=== PATIENT | male | born 1960 | race Hispanic/Latino ===

== ENCOUNTER 2019-09-03 10:10 | Day surgery (SDC) | payer BC ==
[2019-08-31 13:04] VITALS: BP 156/67
[2019-08-31 13:10] LABS: BASOPHILS % (AUTO) 0.6 % (0.0-5.0); EOSINOPHILS % (AUTO) 0.5 % (0.0-8.0); HEMATOCRIT 41.9 % (42-54); LYMPHOCYTES % (AUTO) 26.9 % (21.0-51.0); MEAN CORPUSCULAR HEMOGLOBIN 30.8 pg (27.0-33.0); MEAN CORPUSCULAR HGB CONC 34.4 g/dL (32.0-36.0); MEAN CORPUSCULAR VOLUME 89.5 fL (79-99); MONOCYTES % (AUTO) 7.5 % (3.0-13.0); NEUTROPHILS % (AUTO) 64.5 % (40.0-77.0); PLATELET COUNT (AUTO) 157 K/uL (130-400); RED BLOOD CELL COUNT(AUTO) 4.69 MIL/uL (4.50-6.20); RED CELL DISTRIBUTION WIDTH 13.6 % (11.0-15.5); WHITE BLOOD COUNT (AUTO) 8.8 K/uL (4.8-10.8)
[2019-08-31 13:11] LABS: APPEARANCE,URINE Clear (CLEAR); BILIRUBIN,URINE Negative (NEGATIVE); COLOR,URINE Yellow (YELLOW); GLUCOSE, URINE (UA) Negative (NEGATIVE); KETONES,URINE Trace mg/dL (NEGATIVE); LEUKOCYTE ESTERASE ,URINE Negative (NEGATIVE); NITRATE,URINE Negative (NEGATIVE); OCCULT BLOOD,URINE Negative (NEGATIVE); PROTEIN,URINE Negative (NEGATIVE)
[2019-08-31 13:22] LABS: CREATININE 1.1 mg/dL (0.5-1.5); POTASSIUM 4.3 mmol/L (3.5-5.1)
[~2019-09-03] VITALS: Ht 166.4 cm; Wt 102.1 kg
[2019-09-03] VITALS (13 sets, daily range): BP systolic 116–144; BP diastolic 67–85
[2019-09-03] MEDS: CEFTRIAXONE SODIUM 1 GM IVP SCH ×2 (06:00→12:22)
[~2019-09-03 10:10] MED LIST: GENTAMICIN 80 MG/NS 100 ML PB 100 ML IV SCH; OLME1TAB46 PO; ROSU10TA28 PO
[2019-09-03] MEDS ORDERED: LACTATED RINGERS 1000ML 1,000 ML IV ONE (10:48)
[2019-09-03] MEDS ORDERED: SCOPOLAMINE HYDROBROMIDE 1 EACH ADH..PATCH TD ONE (10:54)
[2019-09-03] MEDS ORDERED: FENTANYL CITRATE PF 50 MCG/1 ML 2ML VIAL ONE ×2 (12:08→12:31)
[2019-09-03] MEDS ORDERED: MIDAZOLAM HCL 1 MG/ML 2ML VIAL ONE (12:08)
[2019-09-03] MEDS ORDERED: LIDOCAINE PF 2% 5ML ABBOJECT ONE (12:08)
[2019-09-03] MEDS ORDERED: PROPOFOL 10 MG/ML 20ML VIAL IV ONE (12:08)
[2019-09-03] MEDS ORDERED: EPHEDRINE SULFATE 50 MG/ML AMPULE ONE (12:19)
[2019-09-03] MEDS ORDERED: DEXAMETHASONE SOD PHOSPHATE 10MG/ML 1ML VIAL ONE (12:39)
[2019-09-03] MEDS ORDERED: ONDANSETRON HCL 4 MG/2 ML VIAL ONE (12:39)
== END 2019-09-03 14:42 | disposition home or self-care (01) ==
LOC: DAH 10:10 → EDSEX 12:00 → DAH 14:42
PROVIDERS: ATTEND Urology
DX: R97.20 Elevated prostate specific antigen [PSA] (principal); N40.1 Benign prostatic hyperplasia with lower urinary tract symptoms; N41.4 Granulomatous prostatitis; I10 Essential (primary) hypertension; E78.5 Hyperlipidemia, unspecified
CPT/HCPCS: 36415; 55700; 76942; 80048; 81003; 85025; 87088; 88305; 93005; 96366; A4215 ×2; A4221; A4222; A4223; A4600; A4663; A4930; J0696; J1100; J1580; J2001; J2250; J2405; J2704; J3010 ×2; J3490; J7120 ×2

== ENCOUNTER 2024-08-13 06:43 | Day surgery (SDC) | payer BC ==
[2024-08-07 11:29] VITALS: BP 133/72; PULSE 55; RESP 18; TEMP 98.1
[2024-08-07 11:33] LABS: BASOPHILS # (AUTO) 0.04 K/uL (0.00-0.20); BASOPHILS % (AUTO) 0.5 % (0.0-5.0); EOSINOPHILS # (AUTO) 0.07 K/uL (0.00-0.70); EOSINOPHILS % (AUTO) 0.9 % (0.0-8.0); HEMATOCRIT 42.2 % (42-54); IMMATURE GRANULOCYTE ABSOLUTE 0.02 K/uL (0-1); LYMPHOCYTES # (AUTO) 2.9 K/uL (1.0-4.8); LYMPHOCYTES % (AUTO) 39.6 % (21.0-51.0); MEAN CORPUSCULAR HEMOGLOBIN 29.8 pg (27.0-33.0); MEAN CORPUSCULAR HGB CONC 33.9 g/dL (32.0-36.0); MEAN CORPUSCULAR VOLUME 87.9 fL (79-99); MONOCYTES # (AUTO) 0.6 K/uL (0.1-1.0); MONOCYTES % (AUTO) 8.3 % (3.0-13.0); NEUTROPHILS # (AUTO) 3.7 K/uL (1.8-7.7); NEUTROPHILS % (AUTO) 50.4 % (40.0-77.0); PLATELET COUNT (AUTO) 182 K/uL (130-400); RED CELL DISTRIBUTION WIDTH 13.4 % (11.0-15.5); WHITE BLOOD COUNT (AUTO) 7.4 K/uL (4.8-10.8)
[2024-08-07 11:34] LABS: APPEARANCE,URINE CLEAR (CLEAR); BILIRUBIN,URINE NEGATIVE (NEGATIVE); COLOR,URINE YELLOW (YELLOW); GLUCOSE, URINE (UA) NEGATIVE (NEGATIVE); KETONES,URINE NEGATIVE (NEGATIVE); LEUKOCYTE ESTERASE ,URINE NEGATIVE Leu/uL (NEGATIVE); NITRATE,URINE NEGATIVE (NEGATIVE); OCCULT BLOOD,URINE NEGATIVE (NEGATIVE); PH,URINE 5.5 (5.0-8.0); PROTEIN,URINE 10 mg/dL (NEGATIVE); UROBILINOGEN,URINE 0.2 mg/dL (0.2-1.0)
[2024-08-07 11:39] LABS: ADD UA MICROSCOPIC YES
[2024-08-07 11:41] LABS: MUCUS,URINE RARE LPF (None Seen); RBC,URINE 0-1 /HPF (0-1); WBC,URINE 0-1 /HPF (0-1)
[2024-08-07 11:46] LABS: CREATININE 1.1 mg/dL (0.5-1.3); POTASSIUM 3.7 mmol/L (3.5-5.1)
[2024-08-13] VITALS (16 sets, daily range): BP systolic 93–124; BP diastolic 50–77; PULSE 50–59; RESP 12–18; TEMP 96.1–98.2
[~2024-08-13] VITALS: Ht 165.1 cm; Wt 96.3 kg
[~2024-08-13 06:43] MED LIST changes: +AMLO-257 PO; -GENTAMICIN 80 MG/NS 100 ML PB 100 ML IV SCH; +HYDR12.54 PO; +LEVO50TA11 PO; -OLME1TAB46 PO; +OLME40TA18 PO; -ROSU10TA28 PO; +ROSU10TA72 PO
[2024-08-13] MEDS: cefTRIAXone 1G VIAL ONE (08:15)
[2024-08-13] MEDS: GENTAmicin 80 MG/NS 100 ML PB 100 ML IV ONE (08:15)
[2024-08-13] MEDS: LACTATED RINGERS 1000ML 1,000 ML IV ONE (08:17)
[2024-08-13] MEDS ORDERED: proPOFol 10 MG/ML 20ML VIAL IV ONE ×3 (09:39→10:15)
[2024-08-13] MEDS ORDERED: MIDAZOLAM HCL 1 MG/ML 2ML VIAL ONE (09:40)
[2024-08-13] MEDS ORDERED: LIDOCAINE PF 100MG/5ML (2%) SYRINGE 5ML ONE (09:40)
[2024-08-13] MEDS: cefTRIAXone 1G VIAL IVPB ONE ×2 (10:02)
== END 2024-08-13 11:50 | disposition home or self-care (01) ==
LOC: DAH 06:43
PROVIDERS: ATTEND Urology
DX: R97.20 Elevated prostate specific antigen [PSA] (principal); N40.2 Nodular prostate without lower urinary tract symptoms; N41.1 Chronic prostatitis; N41.0 Acute prostatitis; I10 Essential (primary) hypertension; E78.5 Hyperlipidemia, unspecified; G47.30 Sleep apnea, unspecified; Z99.89 Dependence on other enabling machines and devices
CPT/HCPCS: 80048; 85025; 87086; 81001; 36415; 93005; 55700; 76872; 88305; A6260; J7120; J2003; J0696 ×2; J2250; J2704 ×3; J1580; A4215 ×2; A4930; A4649; A4223; A4213; A4222; A4221; A4663; A4510; A4600; J3490